=== PATIENT | female | born 1980 | race Caucasian/White ===

== ENCOUNTER 2020-03-28 09:44 | Emergency (ER) | payer SELFPAY ==
--- NOTE | 2020-03-28 10:36 | RAD ---
EXAM: XR Ankle Rt 3 View STANDARD PROVIDED CLINICAL HISTORY: Pain status post injury FINDINGS: There is no evidence for fracture or other acute osseous abnormality. Alignment appears anatomic. Misti nt spaces appear preserved. IMPRESSION: No evidence for an acute osseous abnormality. If there is persistent clinical concern, conservative m anagement and follow-up imaging advised.
--- NOTE | 2020-03-28 10:37 | RAD ---
EXAM: XR Foot Rt 3 View STANDARD PROVIDED CLINICAL HISTORY: Pain status post injury FINDINGS: There is no evidence for fracture or other acute osseous abnormality. Alignment appears anatomic. Misti nt spaces appear preserved. Small calcaneal enthesophytes are seen. IMPRESSION: No evidence for an acute osseous abnormality. If there is persistent clinical concern, conservative m anagement and follow-up imaging advised.
--- NOTE | 2020-03-28 10:37 | RAD ---
XR Ankle Lt 3 View STANDARD INDICATION: Fall with left ankle injury COMPARISON: None. FINDINGS: Bones: There is a healed instrumented medial malleolus fracture. There is a healed, previously instru mented lateral malleolus fracture. No acute fracture or subluxation is evident. There is mild degenerative change involving the tibiotalar and subtalar joints. Ankle mortise: Symmetric. There is mild degenerative change of the posterior tibiotalar joint. Talar Dome: Intact. Subtalar joint: Mild degenerative change of the subtalar joint. Visualized hindfoot: Normal. Periarticular soft tissues: Normal. IMPRESSION: 1. No acute fracture or subluxation demonstrated.
== END 2020-03-28 11:15 | disposition home or self-care (01) ==
LOC: ERS 09:44
DX: S93.401A Sprain of unspecified ligament of right ankle, initial encounter (principal); E03.9 Hypothyroidism, unspecified; F41.9 Anxiety disorder, unspecified; F32.9 Major depressive disorder, single episode, unspecified; Z79.01 Long term (current) use of anticoagulants; Z79.899 Other long term (current) drug therapy; W01.0XXA Fall on same level from slipping, tripping and stumbling without subsequent striking against object, initial encounter; Y93.01 Activity, walking, marching and hiking